=== PATIENT | male | born 1970 | race Caucasian/White ===

== ENCOUNTER 2024-12-06 07:22 | Day surgery (SDC) | payer BC ==
[~2024-12-06 07:22] MED LIST: Sodium Chloride 0.9% 10 ML Syringe FLUSH PRN
[2024-12-06] MEDS: Lactated Ringers 1,000 ML IV SCH (08:25)
[2024-12-06] MEDS ORDERED: Propofol 200 MG/20 ML SDV ONE ×3 (08:56→09:21)
[2024-12-06] MEDS ORDERED: Sodium Chloride 0.9% 10 ML Syringe FLUSH SCH (09:00)
== END 2024-12-06 10:20 | disposition home or self-care (01) ==
LOC: JD.SDS 07:22
PROVIDERS: ATTEND Surgery
DX: K29.50 Unspecified chronic gastritis without bleeding (principal); R13.10 Dysphagia, unspecified; K20.0 Eosinophilic esophagitis; Z87.891 Personal history of nicotine dependence; K21.9 Gastro-esophageal reflux disease without esophagitis
CPT/HCPCS: 00731; J2704; J7120

== ENCOUNTER 2025-05-21 17:49 | Emergency (ER) | payer BC ==
[2025-05-21] MEDS: Acetaminophen/HYDROcodone 325-5 MG Tab PO ONE (18:30)
[2025-05-21] MEDS ORDERED: Ropivacaine 0.5% 5 MG/ML 30 ML SDV ONE (19:03)
[2025-05-21] MEDS ORDERED: hydrALAZINE 20 MG/ML SDV IVPUSH ONE (19:40)
[2025-05-21 19:50] LABS: BASOPHILS ABSOLUTE AUTO 0.0 K/mm3 (0.0-0.2); BASOPHILS PERCENT AUTO 0.2 % (0.0-1.0); EOSINOPHILS ABSOLUTE AUTO 0.0 K/mm3 (0.0-0.4); EOSINOPHILS PERCENT AUTO 0.1 % (0.0-6.0); IMMATURE GRAN ABSOLUTE AUTO 0.05 K/mm3 (0.00-0.05); IMMATURE GRAN PERCENT AUTO 0.4 % (0.0-0.4); LYMPHOCYTES ABSOLUTE AUTO 2.2 K/mm3 (1.0-4.8); LYMPHOCYTES PERCENT AUTO 19.5 % (24.0-44.0); MEAN PLATELET VOLUME 8.9 fl (9.4-12.4); MONOCYTES ABSOLUTE AUTO 0.9 K/mm3 (0.0-0.8); MONOCYTES PERCENT AUTO 7.6 % (0.0-8.0); NEUTROPHILS ABSOLUTE AUTO 8.2 K/mm3 (1.8-7.7); NEUTROPHILS PERCENT AUTO 72.2 % (41.0-71.0); NRBC ABSOLUTE 0.00 (0.00-0.02); NRBC PERCENT 0.0 % (0.0-0.2); PLATELET COUNT,PLT 249 K/mm3 (150-400); RED BLOOD CELL COUNT 4.87 M/mm3 (4.52-5.90); WHITE BLOOD CELL COUNT,WBC 11.31 K/mm3 (3.9-11.3)
[2025-05-21] MEDS: Iopamidol 612 MG/ML 100 ML Bottle IVPUSH ONE (19:53)
[2025-05-21 20:12] LABS: A/G RATIO 1.0 (1-2); ALANINE AMINOTRANSFERASE,ALT 58.0 U/L (16-63); ASPARTATE AMNIOTRANSFERASE,AST 26.0 U/L (15-37); BILIRUBIN TOTAL 0.3 mg/dL (0.2-1.0); BLOOD UREA NITROGEN,BUN 16.0 mg/dL (7-18); CARBON DIOXIDE,CO2 30.0 mEq/L (21-32); CHLORIDE,CL 105.0 mEq/L (98-107); CREATININE 1.1 mg/dL (0.7-1.3); EST CRCL DRUG DOSING (CG) 85.24 mL/min; ESTIMATED GFR 80.0 mL/min (>60); GLUCOSE RANDOM 126.0 mg/dL (70-99); POTASSIUM,K 3.8 mEq/L (3.5-5.1); PROTEIN TOTAL,TP 7.3 g/dl (6.4-8.2); SODIUM,NA 143.0 mEq/L (136-145)
[2025-05-21] MEDS: Esmolol 100 MG/10 ML SDV IV ONE (20:14)
[2025-05-21] MEDS: Amoxicillin/Clavulanate K 875-125 MG Tab PO ONE (21:16)
== END 2025-05-21 21:17 | disposition home or self-care (01) ==
LOC: JD.ED 17:49
DX: G50.0 Trigeminal neuralgia (principal); Z79.899 Other long term (current) drug therapy
CPT/HCPCS: 36415; 70487; 80053; 85025; 85652; 86140; 96374; 99284; A9270; J1805; J2003; J2795; Q9967; 64450